=== PATIENT | female | born 1955 | race Caucasian/White ===

== ENCOUNTER 2024-10-18 14:53 | Emergency (ER) | payer MEDICAID, SELFPAY ==
[2024-10-18 14:54] VITALS: BP 140/112; PULSE 69; RESP 16; TEMP 36.6; O2SAT 98; BMI 24.0
--- NOTE | 2024-10-18 15:55 | EX.ED.DYSGE1 ---
HPI History of Present Illness Chief Complaint: Shortness of Breath Detail of Chief Complaint: Patient has multitude of symptoms Informant: patient Onset/Context/Timing Onset: Weeks (Onset 2 weeks ago) Context: Sudden Onset Timing: Intermittent and Waxes and wanes Quality: Tremors, lightheadedness, paresthesia all extremities, headache Location: Multitude Current Severity: Mild Maximum Severity: Moderate Worsened by: Nothing that patient is able to tell me Relieved by: When she lies down Associated Symptoms Associated Symptoms: Becomes diaphoretic when she lies down Narrative Narrative: Patient is a 68-year-old woman. She has history of chronic diarrhea. She had a colonoscopy done by Dr. Edwardo Thomas approximately year ago and was told everything looks fine. She does have a equipment specialist through the [facility] Dr. Devine. She presents because of tremors that started 2 weeks ago. The tremors have been intermittent. When she has a tremor she feels lightheaded and goes to the ground. She has not passed out. She states she gets better if she is supine. When she is supine she feels a very hot sensation that overcomes her and she becomes sweaty. When this occurs she denies visual, ocular, auditory issues. She denies trouble with speech or swallowing other than her voice is affected by the tremors. She denies cardiac or respiratory symptoms. She denies black or maroon-colored diarrhea. She denies nausea or vomiting. She states this morning she developed a left-sided headache. She localizes the pain over the left temporal area. She denies double vision, blurred vision or change in vision. She denies eye pain. There is no history of trauma. She denies ringing or ears or decreased hearing. She denies chest discomfort, shortness of breath. She denies dyspnea with exertion, orthopnea or PND. She denies leg pain, swelling discoloration. There is no history of VTE. Patient states she attempted to see her doctor. Her doctor sent her to the emergency department. Recent Illness/Hospitalization: No PFSH PFS Home Medications ?Medication ?Instructions ?Recorded ?Last Taken ?Type Omeprazole [Prilosec] 40 mg PO DAILY 03/28/14 03/30/14 08:00 History 40 mg bupropion HCl 150 mg tablet,12 hr 150 mg PO BID 03/28/14 03/29/14 22:00 History sustained-release 150 mg citalopram 40 mg tablet 40 mg PO DAILY 03/28/14 03/29/14 08:00 History 40 mg clonazepam 0.5 mg tablet 0.5 mg PO BID 03/28/14 03/29/14 22:00 History .5mg albuterol sulfate 90 mcg/actuation 2 puff inhalation Q4H PRN PRN Sob 03/31/14 Unknown History aerosol inhaler (Ventolin HFA) &/Or Wheezing colestipol 1 gram tablet (Colestid) 2 g PO DAILY 05/05/17 Unknown History levofloxacin 750 mg tablet 750 mg PO DAILY #7 tabs 05/05/17 Unknown Rx (Levaquin) loperamide 2 mg tablet 2 mg PO BIDCM 05/05/17 Unknown History (Anti-Diarrheal (loperamide)) loratadine 10 mg tablet 10 mg PO DAILY 05/05/17 Unknown History oxycodone-acetaminophen 5 mg-325 1 tab PO Q6H PRN PRN Pain ##20 05/05/17 Unknown Rx mg tablet prednisone 10 mg tablet 10 mg PO DAILY ##48 05/05/17 Unknown Rx Allergy/AdvReac Type Severity Reaction Status Date / Time latex Allergy Rash Verified 05/05/17 12:13 amoxicillin (Amoxicillin) AdvReac Upset Verified 05/05/17 12:13 Stomach Social History Smoking Status: Former smoker ROS ROS ED Constitutional Constitutional ED: Denies chills, fever(s), subjective or sweats Eyes Eyes: Denies blurry vision, change in vision or diplopia ENT ENT ED: Denies ear pain, rhinorrhea or sore throat Cardiovascular Cardiovascular: Denies chest pain, orthopnea, palpitations, paroxysmal nocturnal dyspnea or racing heartbeat Respiratory/Chest Respiratory/Chest: Denies cough, dyspnea, dyspnea on exertion, orthopnea or paroxysmal nocturnal dyspnea Gastrointestinal Gastrointestinal: Reports diarrhea; Denies abdominal pain, constipation, melena, nausea or vomiting Genitourinary Genitourinary ED: Denies dysuria, hematuria or urinary frequency Musculoskeletal Musculoskeletal: Denies arthralgias, back pain or myalgias Integumentary Denies rash Neurologic Neurologic: Reports headache(s); Denies paresthesias or weakness Psychiatric Psychiatric: Reports anxiety and other Details: Patient states she is not been experiencing any more anxiety than baseline. Endocrine Endocrinology: Denies cold intolerance or heat intolerance Hematologic/Lymphatic Hematologic/Lymphatic: Reports systems reviewed and no addt'l complaints, except as documented EXAM Physical Exam Const Vital Signs: 10/18/24 14:54 10/18/24 16:54 10/18/24 16:54 Temperature 97.8 F Temperature Source Temporal Pulse Rate 69 78 Pulse Rate [Lying] Pulse Rate [Sitting (for 1 minute prior to obtaining)] Pulse Rate [Standing (for 1 minute prior to obtaining)] Respiratory Rate 16 16 Respiratory Effort Normal Non-Labored Respiratory Depth Normal Respiratory Pattern Normal Blood Pressure 140/112 H 136/89 H Blood Pressure [Lying] Blood Pressure [Sitting (for 1 minute prior to obtaining)] Blood Pressure [Standing (for 1 minute prior to obtaining)] Blood Pressure Mean 121 104 Blood Pressure Mean [Lying] Blood Pressure Mean [Sitting (for 1 minute prior to obtaining)] Blood Pressure Mean [Standing (for 1 minute prior to obtaining)] Pulse Ox 98 98 Oxygen Delivery Method Room Air Room Air 10/18/24 18:01 10/18/24 19:46 Temperature Temperature Source Pulse Rate 60 Pulse Rate [Lying] 54 L Pulse Rate [Sitting (for 1 minute prior to obtaining)] 62 Pulse Rate [Standing (for 1 minute prior to obtaining)] 90 Respiratory Rate 18 Respiratory Effort Respiratory Depth Respiratory Pattern Blood Pressure 168/98 H Blood Pressure [Lying] 142/100 H Blood Pressure [Sitting (for 1 minute prior to obtaining)] 150/98 H Blood Pressure [Standing (for 1 minute prior to obtaining)] 148/92 H Blood Pressure Mean 121 Blood Pressure Mean [Lying] 114 Blood Pressure Mean [Sitting (for 1 minute prior to obtaining)] 115 Blood Pressure Mean [Standing (for 1 minute prior to obtaining)] 110 Pulse Ox 95 Oxygen Delivery Method Room Air Positive well nourished and well developed Constitutional Narrative: Patient does have an obvious tremor. General Appearance ED: well developed and NAD; Negative for pallor HEENT HEENT Narrative: Head is atraumatic normocephalic. Ears normal. Nares patent. Posterior pharynx out erythema or exit. Uvula midline. No deviation protrusion. She reports some tenderness over the left temporal area and temporal artery. Eyes PERRL and EOMs intact bilaterally Eyes Narrative: There is no nystagmus. There is no APD. Unable to see fundi. General Eye ED: Negative for pale conjunctiva or scleral icterus Neck no lymphadenopathy, supple and no JVD General: Negative for tenderness Resp normal respiratory effort and clear to auscultation bilaterally Cardio regular rate, regular rhythm, S1 normal heart sound, S2 normal heart sound and no murmurs GI normal to inspection, nondistended, normoactive bowel sounds, non-tender, non-distended and no masses; Negative for hepatosplenomegaly Palpation: soft Extremity normal to inspection Extremity Narrative: Possibly 1 mm pitting edema bilaterally lower extremities General Extremety ED: Yes edema; Negative for tenderness General Extremity: edema Neuro oriented x3, CN's II-XII intact bilaterally and no sensory deficits noted Neuro Narrative: There is no clonus or Babinski sign. There is no dysmetria. Sensorium / Orientation: alert Motor Exam: strength 5/5 throughout Psych Mood & Affect: anxious Skin no rashes or lesions noted, no wounds and skin turgor normal General Skin Exam: Negative for jaundice or pallor MDM MDM MDM Narrative Medical decision making narrative: Because of the left temporal artery tenderness ESR was obtained. Differential would include anxiety, temporal arteritis, tension headache which would be unusual since it is unilateral. Her symptoms are not consistent with a cluster headache. She does have symptoms suggestive of hyperventilation. At this time she has negative [place] sign. Her neuroexam is normal. Will obtain electrolyte panel to assess calcium to rule out hypocalcemia as a cause of her paresthesia which is intermittent. Orthostatic vitals were obtained because she reports feeling lightheaded when she has the onset of the symptoms. Will review prior records as well. History & Record Review Additional record(s) reviewed:: Prior ED visit (Last ER visit is 2016. All of her records are through the [facility].) Lab Data Attestation: I reviewed the patient's lab results. Lab results narrative: CBC reveals elevated H&H. This is elevated from baseline the dates back to 2013. This may represent dehydration. Electrolyte panel reveals a high anion gap acidosis. Estimated GFR is 53. Labs: Laboratory Results - last 24 hr 10/18/24 16:11 WBC 7.6 RBC 5.44 H Hgb 16.4 H Hct 49.2 H MCV 90.4 MCH 30.1 MCHC 33.3 RDW Std Deviation 44.8 H RDW Coeff of Dimitri 13.5 Plt Count 245 MPV 9.4 ESR 12 Sodium 140 Potassium 3.6 Chloride 103 Carbon Dioxide 19.3 L Anion Gap 18 H BUN 15 Creatinine 0.74 Estim Creat Clear Calc 53.48 Est GFR (MDRD) Non-Af 87 BUN/Creatinine Ratio 20.1 H Glucose 86 Calcium 10.1 Total Bilirubin 0.77 AST 26 ALT 7 Alkaline Phosphatase 61 Total Protein 7.7 Albumin 4.8 Globulin 2.9 Albumin/Globulin Ratio 1.6 Treatment and Re-Evaluation :: Patient's blood pressure has been elevated during her stay. She does not have a history of hypertension. Discharge Plan Triage Chief Complaint: Shortness of Breath ED Provider: Bartolome Duque Dx/Rx/DC Orders Clinical Impression: Intermittent tremor, Orthostatic lightheadedness, Elevated blood-pressure reading without diagnosis of hypertension, History of gastroesophageal reflux (GERD), Chronic diarrhea Instructions: FTSD, ED Dizziness, Uncertain Cause, ED Hypertension, To Be Confirmed Prescriptions: No Action bupropion HCl 150 MG tablet sustained-release 12 hr 150 mg PO BID Patient Comments: mood citalopram 40 MG tablet 40 mg PO DAILY Patient Comments: mood clonazepam 0.5 MG tablet 0.5 mg PO BID Patient Comments: mood Omeprazole [Prilosec] 40 MG capsule 40 mg PO DAILY Patient Comments: stomach albuterol sulfate [Ventolin HFA] 1 INHALER inhaler 2 puff inhalation Q4H PRN PRN (Reason: Sob &/Or Wheezing) Patient Comments: breathing loperamide [Anti-Diarrheal (loperamide)] 2 MG tablet 2 mg PO BIDCM Patient Comments: Take 1 tablet by mouth twice daily before meals. colestipol [Colestid] 1 GM tablet 2 g PO DAILY loratadine 10 MG tablet 10 mg PO DAILY Patient Comments: TAKE 1 TABLET BY MOUTH EVERY DAY prednisone 10 MG tablet 10 mg PO DAILY Qty: 48 0RF Rx Instructions: 6 po qd x 3 days, 4 po qd x 3 days, 2 po qd x 3 days, 1 po qd x 3 days oxycodone-acetaminophen 1 TABLET tablet 1 tab PO Q6H PRN PRN (Reason: Pain) Qty: 20 0RF levofloxacin [Levaquin] 750 MG tablet 750 mg PO DAILY Qty: 7 0RF Primary Care Provider: Suleman Kwok Referrals: Suleman Kwok DO [Primary Care Provider] - 5-7 Days Print Language: Georgian Disposition Disposition: Home, Self Care
[2024-10-18 16:18] LABS: Hematocrit 49.2 % (37-47); Hemoglobin 16.4 g/dL (12.0-15.0); Mean Corp Hgb Conc 33.3 g/dL (32-36); Mean Corpuscular Hgb 30.1 pg (27.0-32.0); Mean Corpuscular Volume 90.4 fL (81-99); Mean Platelet Vol. 9.4 fl (6.2-12.0); Platelet Count 245 K/mm3 (150-450); RBC Distribution Width CV 13.5 % (11.6-14.6); RBC Distribution Width SD 44.8 fl (35.1-43.9); Red Blood Count 5.44 M/mm3 (4.2-5.4); White Blood Count 7.6 K/mm3 (4.4-11.0)
[2024-10-18 16:37] LABS: Erythrocyte Sedimentation Rate 12 mm/hr (0-30)
[2024-10-18 16:54] VITALS: BP 136/89; PULSE 78; RESP 16; O2SAT 98
[2024-10-18 17:40] LABS: ALB/GLOB Ratio 1.6 RATIO (0.9-2.4); AST(SGOT) 26 U/L (<=31); Alanine Aminotransfer ALT/SGPT 7 U/L (<=34); Albumin, Serum 4.8 g/dL (3.4-4.8); Alkaline Phosphatase 61 U/L (35-104); BUN 15 mg/dL (4-19); BUN/Creat Ratio 20.1 RATIO (10-20); Creatinine, Serum 0.74 mg/dL (0.70-1.20); EST Glomerular Filtration Rate 87 (>60); Estimated Creatinine Clearance 53.48 ml/min (50-250); Globulin 2.9 g/dL (2.2-4.2); Glucose 86 mg/dL (70-99); Protein, Total 7.7 g/dL (5.9-8.4); Total Bilirubin 0.77 mg/dL (0.00-1.30)
[2024-10-18 18:01] VITALS: BP 142/100; BP 148/92; BP 150/98; PULSE 54; PULSE 62; PULSE 90
[2024-10-18 19:46] VITALS: BP 168/98; PULSE 60; RESP 18; O2SAT 95
[2024-10-18 19:46] LABS: Calcium,Total 10.1 mg/dL (7.6-11.0); Sodium Level 140 mmol/L (133-145)
[2024-10-18 19:47] LABS: Anion Gap 18 (5-15); Carbon Dioxide 19.3 mmol/L (21.0-32.0); Chloride 103 mmol/L (98-108); Potassium 3.6 mmol/L (3.3-5.1)
== END 2024-10-18 20:11 | disposition home or self-care (01) ==
PROVIDERS: Emergency Provider Emergency Medicine; PCP Student in an Organized Health Care Education/Training Program; Visit Provider Emergency Medicine
DX: R25.1 Tremor, unspecified (principal); R42 Dizziness and giddiness; R06.02 Shortness of breath; R51.9 Headache, unspecified; R03.0 Elevated blood-pressure reading, without diagnosis of hypertension; Z87.891 Personal history of nicotine dependence; K21.9 Gastro-esophageal reflux disease without esophagitis; R20.2 Paresthesia of skin; R19.7 Diarrhea, unspecified; F41.9 Anxiety disorder, unspecified
CPT/HCPCS: 80053; 85027; 85652; 99285; A4216